=== PATIENT | female | born 1945 | race Caucasian/White ===

== ENCOUNTER 2021-02-05 08:07 | Emergency (ER) | payer MEDICARE ==
[~2021-02-05] VITALS: Ht 153.7 cm; Wt 96.2 kg
[~2021-02-05 08:07] MED LIST: BUMEX1 MG PO; CELEBREX **OUT100 MG PO; CERTAGEN1 EACH PO; COENZYME Q10100 MG PO; COREG12.5 MG PO; DIGITEK125 MCG PO; FLONASE ALLER15.8 ML; MAG-OXIDE 400M400 MG PO; MYLICON80 MG PO; NORCO 5-325 TA1 EACH PO; NORVASC5 MG PO; NOVOLOG VI100 UNIT/1 SC; SYNTHROID125 MCG PO; TESSALON PERLE100 MG PO; TOVIAZ4 MG PO; UROCIT-K10 MEQ PO; XARELTO15 MG PO; ZINC50 MG PO
[2021-02-05 08:59] LABS: ALBUMIN 3.9 g/dL (3.4-5.0); BILIRUBIN - TOTAL 1.3 mg/dL (0.2-1.0); BUN/CREAT RATIO (CALC) 20.9 RATIO; CREATININE 1.72 mg/dL (0.51-0.95); GLOBULIN (CALCULATION) 3.4 g/dL; POTASSIUM 4.2 mmol/L (3.5-5.1); TOTAL PROTEIN 7.3 g/dL (6.4-8.2)
[2021-02-05 09:02] LABS: BASOPHIL 0.8 % (0-2); EOSINOPHIL 5.3 % (0-7); HCT 39.3 % (37.0-47.0); HGB 12.7 g/dl (12.5-16.0); LYMPHOCYTE 11.1 % (15-48); MCH 29.9 pg (25.0-31.0); MCHC 32.3 g/dL (32.0-36.0); MCV 92.5 fL (78.0-100.0); MONOCYTE 7.2 % (0-12); NEUTROPHIL 75.3 % (41-80); NRBC 0; PLT 232 K/uL (150-400); RBC 4.25 M/uL (4.20-5.40); RDW 13.9 % (11.5-14.0); WBC 8.6 K/uL (4.0-10.5)
[2021-02-05] MEDS ORDERED: CEPHALEXIN500 MG PO (09:19)
== END 2021-02-05 09:50 | disposition home or self-care (01) ==
LOC: FER 08:07
PROVIDERS: Internal Medicine
DX: L03.116 Cellulitis of left lower limb (principal); L03.115 Cellulitis of right lower limb; R60.0 Localized edema; I50.9 Heart failure, unspecified; E11.22 Type 2 diabetes mellitus with diabetic chronic kidney disease; N18.4 Chronic kidney disease, stage 4 (severe); I48.91 Unspecified atrial fibrillation; Z88.6 Allergy status to analgesic agent
CPT/HCPCS: 36415; 71045; 80053; 83880; 85025; 93005; J0696

== ENCOUNTER 2021-07-08 10:13 | Emergency (ER) | payer MEDICARE ==
[~2021-07-08 10:13] MED LIST changes: +CEPHALEXIN500 MG PO
[2021-07-08 12:20] LABS: BASOPHIL 0.8 % (0-2); EOSINOPHIL 3.3 % (0-7); HCT 40.1 % (37.0-47.0); LYMPHOCYTE 13.3 % (15-48); MCH 30.7 pg (25.0-31.0); MCHC 32.4 g/dL (32.0-36.0); MCV 94.8 fL (78.0-100.0); MONOCYTE 8.1 % (0-12); MPV 10.5 fL (6.0-9.5); NEUTROPHIL 74.3 % (41-80); NRBC 0; PLT 210 K/uL (150-400); RBC 4.23 M/uL (4.20-5.40); RDW 13.8 % (11.5-14.0); WBC 9.1 K/uL (4.0-10.5)
[2021-07-08 12:37] LABS: ALBUMIN 3.8 g/dL (3.4-5.0); BILIRUBIN - TOTAL 1.3 mg/dL (0.2-1.0); BUN/CREAT RATIO (CALC) 13.4 RATIO; CREATININE 1.27 mg/dL (0.51-0.95); GLOBULIN (CALCULATION) 3.5 g/dL; POTASSIUM 4.4 mmol/L (3.5-5.1); TOTAL PROTEIN 7.3 g/dL (6.4-8.2)
[2021-07-08 12:40] LABS: INR 1.89 (0.9-1.2); PROTHROMBIN TIME 20.9 SECONDS (11.8-13.4); PTT 34.3 SECONDS (24.4-34.7)
[2021-07-08 12:53] LABS: D-DIMER 0.28 ug/mLFEU (0.00-0.41)
== END 2021-07-08 14:56 | disposition home or self-care (01) ==
LOC: FER 10:13
PROVIDERS: Emergency Medicine
DX: S30.0XXA Contusion of lower back and pelvis, initial encounter (principal); R55 Syncope and collapse; I10 Essential (primary) hypertension; I48.91 Unspecified atrial fibrillation; Z95.1 Presence of aortocoronary bypass graft; Z88.6 Allergy status to analgesic agent; Z79.01 Long term (current) use of anticoagulants; Z20.822 Contact with and (suspected) exposure to COVID-19; W19.XXXA Unspecified fall, initial encounter; Y92.009 Unspecified place in unspecified non-institutional (private) residence as the place of occurrence of the external cause
CPT/HCPCS: 36415; 70450; 71045; 72125; 72128; 72131; 80053; 82550; 83880; 84484; 85025; 85379; 85610; 85730; 93005; J3490; U0002